=== PATIENT | female | born 1965 | race Caucasian/White ===

== ENCOUNTER → 2018-07-26 | Outpatient (REF) | payer MEDICARE, MEDICAID | LOC: M SMT 17:33 | PROVIDERS: ATTEND Specialist | DX: N39.41 Urge incontinence (principal) | CPT/HCPCS: 51798; 87480; 87510; 87660; G0463 ==

== ENCOUNTER → 2020-10-11 | Outpatient (CLI) | payer MEDICARE, MEDICAID ==
[~2020-10-11] MED LIST: ISOVUE-300 61% 50ML VIAL As Ordered ONE; PROHANCE 279.3MG/ML 5ML VIAL As Ordered ONE
--- NOTE | 2020-10-11 10:20 | REP ---
INDICATION: ROTATOR CUFF TEAR RT SHOULDER. COMPARISON: None. TECHNIQUE: Coronal oblique T1, T2 fat sat, sagittal oblique T2 fat sat, axial T2 fat sat, gradient echo. Post arthrogram T1 fat sat and T2 fat sat in multiple planes. The study is limited by patient motion. FINDINGS: Rotator cuff: There is a complete full-thickness tear of the supraspinatus tendon with significant retraction of the musculotendinous junction, at least 6-7 cm. Mild tendinopathy of the infraspinatus tendon, with a possible partial tear. Acromioclavicular joint: There are moderate hypertrophic degenerative changes of the acromioclavicular joint. Acromion: Type 2 Biceps Tendon: In bicipital groove, with mild surrounding fluid. Hill Sach's deformity: None. Deltoid muscle: No abnormal signal. Biceps labral complex: Mild fraying of the biceps labral complex. Labrum: No tear. Cartilage: No defects. There is mild chondromalacia at the glenohumeral joint. Bone marrow: No abnormal signal. There is no bone marrow edema. There is a tiny subcortical cyst in the superolateral humeral head. Joint fluid: There is mild joint effusion, with fluid extending into the subacromial/subdeltoid bursae. IMPRESSION: Complete full-thickness tear supraspinatus tendon with significant retraction of the musculotendinous junction at least 6-7 cm. Mild tendinopathy of the infraspinatus tendon, with a possible partial tear. Moderate hypertrophic degenerative changes acromioclavicular joint with a type 2 acromion. Mild fraying of the biceps labral complex. I do not see evidence of a labral tear. Mild joint effusion, with fluid extending into the subacromial/subdeltoid bursae. <Electronically signed by Italo Kellogg > 10/11/20 [id number]
--- NOTE | 2020-10-11 11:03 | REP ---
INDICATION: ROTATOR CUFF TEAR RT SHOULDER. COMPARISON: None TECHNIQUE: The procedure was performed by Eri Morin [facility], under the direct supervision of Dr. Kellogg. The benefits and risks of the procedure were explained to the patient, and an informed consent was obtained. Directly prior to the start of the procedure, a formal time-out was completed in the procedure room. The right glenohumeral joint space was localized using fluoroscopic guidance. The skin was prepped and draped in a sterile fashion. Approximately 5 mL of 1% Lidocaine 10 mg/ml was used as a local anesthetic. Using fluoroscopic guidance, a #22 gauge spinal needle was inserted and advanced into the right glenohumeral joint space. Approximately 1 mL of Isovue 300 was injected to verify placement. Twelve mL of a solution containing 20 mL of sterile saline and 0.15 mL of ProHance was injected into the joint space. The needle was removed and the patient was taken to MRI for post procedural imaging. FINDINGS: The patient tolerated the procedure well and there were no immediate complications. IMPRESSION: Fluoroscopic guided MRI arthrogram injection. 0.1 minutes of fluoroscopy time was utilized for this procedure. Some fluoroscopic images are performed with last image hold technology. These images require no additional radiation. <Electronically signed by Eri Morin > 10/11/20 0854 <Electronically signed by Italo Kellogg > 10/11/20 1100
== END ==
LOC: M RADPRO 06:37
PROVIDERS: ATTEND Physician Assistant
DX: M75.121 Complete rotator cuff tear or rupture of right shoulder, not specified as traumatic (principal); M67.813 Other specified disorders of tendon, right shoulder
CPT/HCPCS: 23350; 73223; 77002; A9576; Q9967